=== PATIENT | male | born 1980 ===

== ENCOUNTER 2025-07-22 18:00 | Emergency (ER) | payer OTHER ==
[~2025-07-22] VITALS: Ht 188 cm; Wt 149.7 kg
[2025-07-22 18:22] VITALS: BP 158/102
[2025-07-22] MEDS ORDERED: ALBU2SYR3 PO (19:52)
[2025-07-22] MEDS ORDERED: ALBU8.5H8 INH (19:52)
[2025-07-22] MEDS ORDERED: PRED50TA PO (19:52)
[2025-07-22 19:56] VITALS: BP 158/102; O2SAT 99
== END 2025-07-22 20:02 | disposition home or self-care (01) ==
LOC: ER 18:18
DX: J45.901 Unspecified asthma with (acute) exacerbation (principal); Z79.52 Long term (current) use of systemic steroids
CPT/HCPCS: 99283; J7512; A4606; A4663

== ENCOUNTER 2025-08-13 12:41 | Emergency (ER) | payer OTHER ==
[~2025-08-13] VITALS: Ht 188 cm; Wt 149.7 kg
[~2025-08-13 12:41] MED LIST: ALBU2SYR27 PO; ALBU8.5H8 INH; PRED50TA PO
[2025-08-13 13:27] LABS: PLATELET COUNT (AUTO) 201 K/uL (152-348); RED BLOOD CELL COUNT(AUTO) 5.18 MIL/uL (4.06-5.63); RED CELL DISTRIBUTION WIDTH 14.1 % (12.1-16.2); WHITE BLOOD COUNT (AUTO) 9.9 K/uL (3.6-10.2)
[2025-08-13] MEDS ORDERED: IPRATROPIUM BROMIDE 0.5 MG/2.5 ML NEBU ONE (13:39)
[2025-08-13] MEDS ORDERED: ALBUTEROL SULFATE 2.5 MG/3 ML NEBU ONE (13:39)
[2025-08-13 13:45] VITALS: O2SAT 96
[2025-08-13] MEDS: ALBUTEROL SULFATE 2.5 MG/3 ML NEBU NEB ONE (13:45)
[2025-08-13] MEDS: IPRATROPIUM BROMIDE 0.5 MG/2.5 ML NEBU NEB ONE (13:45)
[2025-08-13 14:13] LABS: CREATININE 1.1 mg/dL (0.6-1.3); SODIUM SERUM 140 mmol/L (136-145); UREA NITROGEN, BLOOD 14 mg/dL (7-18)
[2025-08-13 14:45] VITALS: O2SAT 97
[2025-08-13] MEDS ORDERED: LOSA100T32 GT (16:03)
[2025-08-13] MEDS ORDERED: MAGN400O6 GT (16:03)
[2025-08-13] MEDS ORDERED: ATOR20TA GT (16:03)
[2025-08-13] MEDS ORDERED: SCOP1PAT13 TD (16:03)
[2025-08-13] MEDS ORDERED: METO25TA6 GT (16:03)
[2025-08-13] MEDS ORDERED: [UNRECOGNIZED DRUG - CODE] EACHEYE (16:03)
[2025-08-13] MEDS ORDERED: HYDR1LIQ GT (16:03)
[2025-08-13] MEDS ORDERED: ONDA4TAB5 GT (16:03)
[2025-08-13] MEDS ORDERED: ICOS1CAP GT (16:03)
[2025-08-13] MEDS ORDERED: NA P133E RC (16:03)
[2025-08-13] MEDS ORDERED: [UNRECOGNIZED DRUG - CODE] PO (16:03)
[2025-08-13] MEDS ORDERED: PREG50CA65 GT (16:03)
[2025-08-13] MEDS ORDERED: DOXY-461 GT (16:03)
[2025-08-13] MEDS ORDERED: LACT10SO7 GT (16:03)
[2025-08-13] MEDS ORDERED: BISA10SU61 RC (16:03)
[2025-08-13] MEDS ORDERED: DOCU-141 GT (16:03)
[2025-08-13] MEDS ORDERED: INSU100V7 SQ (16:03)
[2025-08-13] MEDS ORDERED: ASPI81TA31 GT (16:03)
[2025-08-13] MEDS ORDERED: EZET10TA83 GT (16:03)
[2025-08-13] MEDS ORDERED: LORA-259 GT (16:03)
[2025-08-13] MEDS ORDERED: FLUT16SP16 PO (16:03)
[2025-08-13] MEDS ORDERED: LEVO150T8 GT (16:03)
[2025-08-13] MEDS ORDERED: ACET160S GT (16:03)
[2025-08-13 16:08] VITALS: BP 140/78
[2025-08-13] MEDS ORDERED: BECL10.6 INH (16:20)
[2025-08-13] MEDS ORDERED: ALBU18HF2 INH (16:20)
[2025-08-13] MEDS ORDERED: flovent (16:20)
[2025-08-13 16:27] VITALS: BP 138/77; TEMP 98; O2SAT 97
== END 2025-08-13 16:27 | disposition home or self-care (01) ==
LOC: ER 12:56
DX: J45.901 Unspecified asthma with (acute) exacerbation (principal); Z79.51 Long term (current) use of inhaled steroids; Z79.52 Long term (current) use of systemic steroids; Z79.82 Long term (current) use of aspirin; Z79.890 Hormone replacement therapy; Z79.899 Other long term (current) drug therapy
CPT/HCPCS: 36415; 83735; 84484; 85025; A4606; A4663; J3590